=== PATIENT | male | born 1970 | race Caucasian/White ===

== ENCOUNTER 2016-07-01 12:22 | Emergency (ER) | payer SELFPAY ==
[~2016-07-01] VITALS: Ht 188 cm; Wt 67.5 kg
[~2016-07-01 12:22] MED LIST: GUAIFENESIN WI120 ML PO; REGLAN10 MG PO
[2016-07-01 12:50] LABS: HEMATOCRIT 44.8 % (38.0-50.0); MCH 29.9 PG (29.0-34.0); MCHC 33.7 G/DL (30.0-36.0); MCV 88.7 FL (86-99); MEAN PLAT.VOLUME 9.9 uM^3 (9.0-12.4); PLATELET COUNT 235 K/uL (156-360); RBC DIS.WIDTH-CV 12.6 % (11.8-14.6); RBC DIS.WIDTH-SD 41.1 % (39-53); RED BLOOD COUNT 5.05 M/uL (4.00-5.50); WHITE BLOOD COUNT 7.7 K/uL (4.1-10.2)
[2016-07-01 13:03] LABS: CHLORIDE 104 mEq/L (99-109); POTASSIUM 4.7 mEq/L (3.7-5.4); SODIUM 141 mEq/L (136-147)
[2016-07-01 13:05] LABS: GLUCOSE 88 mg/dL (70-99)
[2016-07-01 13:06] LABS: ANION GAP 10 MEQ/L (2-14)
[2016-07-01 13:07] LABS: TOTAL BILIRUBIN 0.5 mg/dL (0.0-1.0)
[2016-07-01 13:08] LABS: ALKALINE PHOSPHATASE 82 IU/L (3-129)
[2016-07-01 13:09] LABS: GFR ESTIMATE (CALCULATED) > 59 mL/min/
[2016-07-01 13:10] LABS: UREA NITROGEN (BUN) 12 mg/dL (9-23)
[2016-07-01 13:43] LABS: LIPASE 65 U/L (1.0-51.0)
[2016-07-01 14:07] LABS: ADD MIUA? NO; BILIRUBIN NEGATIVE; BLOOD NEGATIVE; COLOR COLORLESS ((YELLOW)); GLUCOSE (STRIP) NEGATIVE; KETONES NEGATIVE; LEUKOCYTES NEGATIVE; NITRITE NEGATIVE; PROTEIN (STRIP) NEGATIVE; SPECIFIC GRAVITY 1.003 (1.000-1.030); UCUL ADDED? NO; UROBILINOGEN 0.2 MG/DL (0.2-1.0)
[2016-07-01] MEDS ORDERED: BENTYL10 MG PO (14:33)
[2016-07-01] MEDS ORDERED: CITRATE OF MAG296 ML PO (14:33)
[2016-07-01] MEDS ORDERED: OMEPRAZOLE40 M1 PO (14:45)
[2016-07-01 14:50] VITALS: BP 146/80
== END 2016-07-01 14:52 | disposition home or self-care (01) ==
LOC: EME 12:22
DX: R10.11 Right upper quadrant pain (principal); R11.2 Nausea with vomiting, unspecified; R25.1 Tremor, unspecified; F17.200 Nicotine dependence, unspecified, uncomplicated
CPT/HCPCS: 74022; 80053; 81003; 83690; 85027; 99281; 99283